=== PATIENT | female | born 1970 | race Two or more races ===

== ENCOUNTER 2025-03-13 11:03 | Emergency (ER) | payer OTHER ==
[~2025-03-13] VITALS: Ht 160 cm; Wt 73.0 kg
[2025-03-13 12:25] VITALS: BP 93/63; O2SAT 99
[2025-03-13] MEDS ORDERED: 0.9 % SODIUM CHLORIDE 1,000 ML IV SCH (15:15)
[2025-03-13] MEDS ORDERED: HYOSCYAMINE SULFATE 0.125 MG TAB.SUBL SL ONE (15:15)
[2025-03-13] MEDS ORDERED: HYOSCYAMINE SULFATE 0.125 MG TAB.SUBL ONE (15:30)
[2025-03-13 15:56] LABS: BASO % 0.3 % (0.1-1.2); EOS # 0.06 (0.04-0.54); EOS % 0.7 % (0.7-7.0); HEMATOCRIT 43.5 % (34.1-44.9); HEMOGLOBIN 14.4 g/dL (11.2-15.7); LYMPH % 23.4 % (19.3-53.1); MONO # 0.51 (0.24-0.82); MONO % 5.7 % (4.7-12.5); NEUT # 6.24 (1.56-6.13); NEUT % 69.7 % (34.0-71.1); PLATELET COUNT 263 K/uL (163-369); RED BLOOD COUNT 5.34 M/uL (3.93-5.22); RED CELL DISTRIBUTION WIDTH 13.5 % (11.6-14.4)
[2025-03-13 16:42] LABS: ALBUMIN 3.6 gm/dL (3.4-5.0); BILIRUBIN TOTAL 0.26 mg/dL (0.3-1.2); CALCIUM 9.4 mg/dL (8.5-10.1); CREATININE SERUM 0.96 mg/dL (0.55-1.02); GFR 60.12; GLOBULINA 3.6 G/DL (2.4-3.5); POTASSIUM 3.91 mEq/L (3.5-5.1); TOTAL PROTEIN 7.2 gm/dL (6.4-8.2)
[2025-03-13 16:42] LABS: URINE APPEARANCE Clear; URINE BILIRRUBIN Negative (NEGATIVE); URINE BLOOD Negative; URINE COLOR Yellow; URINE GLUCOSE Negative (NEGATIVE); URINE KETONE Negative (NEGATIVE); URINE LEUKOCYTE Trace; URINE NITRATE Negative; URINE PROTEIN Negative (NEGATIVE); URINE UROBILINOGEN 0.2 E.U./dl
[2025-03-13 16:48] LABS: URINE RBC 28.1 uL (0.0-20.8); URINE WBC 25.9 uL (0.0-23.2)
[2025-03-13 17:03] LABS: URINE BACTERIA > 9821.5 uL (0.0-1933); URINE CAST 0.88 uL (0.0-1.40)
[2025-03-13] MEDS ORDERED: ONDANSETRON ODT8 MG PO (17:15)
[2025-03-13] MEDS ORDERED: PEPCID AC20 MG PO (17:15)
== END 2025-03-13 17:44 | disposition home or self-care (01) ==
LOC: ER 11:31
PROVIDERS: Emergency Medicine
DX: K52.89 Other specified noninfective gastroenteritis and colitis (principal); Z88.0 Allergy status to penicillin; I10 Essential (primary) hypertension